=== PATIENT | female | born 1980 | race Caucasian/White ===

== ENCOUNTER 2020-09-20 21:39 | Inpatient (IN) | payer BC ==
[~2020-09-20] VITALS: Ht 177.8 cm; Wt 86.5 kg
--- NOTE | 2020-09-20 21:58 | NUR ---
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 NIH STROKE SCALE WAS PERFORMED AT [facility] WITH A SCORE OF 0. PT WITH COMPLAINTS OF DIZZINESS, NAUSEA, AND NUMBESS/TINGLING OF THE LEFT HAND, INTERMITTANTLY. NAUSEA NOW RESOLVED WITH MEDICATIONS FINE HAIRER. PT RECIEVED 8MG ZOFRAN, 50MG IM PHENERGAN, 1MG ATIVAN, AND 0.5MG DILAUDID. PT ATTACHED TO ALL MONITORS, ANSWERING QUESTIONS APPROPRAITELY WITH NO NEEDS EXPRESSED AT THIS TIME.
[2020-09-20] MEDS ORDERED: SODIUM CHLORIDE FLUSH 10ML SYR IVF ONE (22:00)
[2020-09-20] MEDS ORDERED: THYR120T PO (22:15)
[2020-09-20] MEDS ORDERED: CITA40TA5 PO (22:15)
[2020-09-20 22:20] LABS: ALBUMIN 3.7 g/dL (3.4-5.0); ANION GAP 8 mmol/L (5-15); CALCIUM 8.3 mg/dL (8.5-10.1); CHLORIDE 108 mmol/L (98-107); CREATININE 0.69 mg/dL (0.55-1.02)
[2020-09-20 22:24] LABS: BASOPHILS % (AUTO) 1 % (0-1); EOSINOPHILS % (AUTO) 1 % (1-7); LYMPHOCYTES % (AUTO) 27 % (22-44); MEAN CORPUSCULAR HEMOGLOBIN 32.4 pg (27.0-34.8); MEAN CORPUSCULAR HGB CONC 34.5 g/dL (32.4-35.8); MEAN PLATELET VOLUME 7.3 fL (7.4-10.4); MONOCYTES % (AUTO) 8 % (2-9); NEUTROPHILS % (AUTO) 63 % (42-75); PLATELET COUNT 355 x10^3/uL (130-400); RED BLOOD COUNT 4.25 x10^6/uL (3.82-5.3); RED CELL DISTRIBUTION WIDTH 13.1 % (9.6-15.2)
[2020-09-20 22:25] LABS: MD NO
[2020-09-20] MEDS ORDERED: ASPIRIN 325 MG TABLET PO ONE (22:30)
[2020-09-20 22:45] LABS: INTERNATIONAL NORMALIZED RATIO 1.04 (0.93-1.1)
[2020-09-20] MEDS ORDERED: ASPIRIN 325 MG TABLET ONE (22:55)
--- NOTE | 2020-09-20 23:00 | NUR ---
PT LYING FLAT IN THE BED. NIH SCALE NEGATIVE. PT HAS COMPLAINTS OF OCCASIONAL DIZZINESS/NAUSEA. PT HAS NO COMPLAINTS AT THIS TIME. PT GIVEN FOOD APPROVED BY [facility]. PT ABLE TO AMBULATE FROM BED TO [facility]. VIRIDIANA.
[2020-09-21] MEDS ORDERED: ONDANSETRON 2MG/ML, 2ML IVPush PRN (00:30)
[2020-09-21] MEDS ORDERED: PROMETHAZINE 25 MG/ML, 1ML IM PRN (00:30)
[2020-09-21] MEDS ORDERED: POLYETHYLENE GLYCOL 17 GM PACKET PO PRN (00:30)
[2020-09-21] MEDS ORDERED: DOCUSATE 100 MG CAPSULE PO PRN (00:30)
--- NOTE | 2020-09-21 00:30 | NUR ---
PT SLEEPING IN BED. VSS. NO COMPLAINTS. WCTM.
[2020-09-21] MEDS ORDERED: ATORVASTATIN 40 MG TABLET ONE (02:04)
--- NOTE | 2020-09-21 02:13 | NUR ---
Report given to Janet
[2020-09-21 04:51] VITALS: BP 110/73
[2020-09-21 05:02] LABS: ALBUMIN 3.5 g/dL (3.4-5.0); ANION GAP 6 mmol/L (5-15); BASOPHILS % (AUTO) 1 % (0-1); CALCIUM 8.5 mg/dL (8.5-10.1); CHLORIDE 109 mmol/L (98-107); EOSINOPHILS % (AUTO) 2 % (1-7); LYMPHOCYTES % (AUTO) 35 % (22-44); MEAN CORPUSCULAR HEMOGLOBIN 32.8 pg (27.0-34.8); MEAN CORPUSCULAR HGB CONC 35.1 g/dL (32.4-35.8); MEAN PLATELET VOLUME 7.2 fL (7.4-10.4); MONOCYTES % (AUTO) 12 % (2-9); NEUTROPHILS % (AUTO) 50 % (42-75); PLATELET COUNT 356 x10^3/uL (130-400); RED BLOOD COUNT 4.08 x10^6/uL (3.82-5.3)
[2020-09-21 05:05] LABS: ALANINE AMINOTRANSFERASE 42 U/L (12-78); ALKALINE PHOSPHATASE 46 U/L (45-117); BILIRUBIN,TOTAL 0.7 mg/dL (0.2-1.0); CHOL/HDL RATIO 4.3; CHOLESTEROL, TOTAL 170 mg/dL (140-239); HDL CHOL % 24 % (28-40); HDL CHOLESTEROL (DIRECT) 40 mg/dL (40-60); LDL CHOLESTEROL,CALCULATED 114 mg/dL (54-169); LDL/HDL RATIO 2.9 (0.5-3.0); TOTAL PROTEIN 6.6 g/dL (6.4-8.2); TRIGLYCERIDES 80 mg/dL (50-200); VLDL CHOLESTEROL 16 mg/dL (0-25)
[2020-09-21 05:07] LABS: MD NO
[2020-09-21] MEDS: THYROID 30 MG TABLET PO SCH (06:23)
--- NOTE | 2020-09-21 07:30 | NUR ---
PT IN BED NO DISTRESS, VSS, ALEXANDER CHECK DONE,
[2020-09-21] MEDS ORDERED: ACETAMINOPHEN 325 MG TABLET ONE ×2 (08:53→16:30)
[2020-09-21] MEDS ORDERED: ASPIRIN 81 MG TABLET CHEW ONE ×2 (08:53→08:57)
[2020-09-21] MEDS: ACETAMINOPHEN 650 MG/20.3 ML UDC PO PRN ×2 (08:55→17:19)
[2020-09-21] MEDS: ASPIRIN 81 MG TABLET CHEW PO/NG SCH (08:56)
[2020-09-21] MEDS: CITALOPRAM 20 MG TABLET PO SCH (08:56)
[2020-09-21] MEDS ORDERED: OMNIPAQUE 350 MG/ML, 100ML BOTTLE ONE (10:32)
--- NOTE | 2020-09-21 10:43 | NUR ---
PT UP TO [facility], NO DISTRESS, CTA DONE, NO CHANGE
--- NOTE | 2020-09-21 12:31 | NUR ---
BREAK RN- PT RESTING IN BED, CALL LIGHT IN REACH, VSS. NO NEURO CHANGES NOTED.
--- NOTE | 2020-09-21 13:32 | NUR ---
PT ASSISTED TO [facility]. STEADY ON FEET INITALLY, THEN BECOMES UNBALANCED. PT PLACED ON HOSPITAL BED. PROVIDED WITH MEAL TRAY. CONT TO AWAIT ROOM ASSIGNMENT.
--- NOTE | 2020-09-21 15:42 | NUR ---
REPORT GIVEN TO ALFONSO, VSS, NO DISTRESS, PT BEING TRANSFERED TO [facility]
[2020-09-21 16:03] VITALS: BP 117/78
[2020-09-21 20:07] VITALS: BP 116/75
[2020-09-21] MEDS ORDERED: ATORVASTATIN 40 MG TABLET PO SCH (21:00)
[2020-09-22 01:35] VITALS: BP 105/72
[2020-09-22] MEDS: ACETAMINOPHEN 650 MG/20.3 ML UDC PO PRN (01:46)
[2020-09-22] MEDS: THYROID 30 MG TABLET PO SCH (05:13)
[2020-09-22] MEDS: OXYcodone 5 MG/5 ML ORAL.SOL UDC PO PRN ×2 (05:20→20:51)
[2020-09-22 07:12] VITALS: BP 122/80
[2020-09-22] MEDS ORDERED: ACETAMINOPHEN 325 MG TABLET ONE (08:32)
[2020-09-22] MEDS: CITALOPRAM 20 MG TABLET PO SCH (08:34)
[2020-09-22] MEDS: ASPIRIN 81 MG TABLET CHEW PO/NG SCH (08:35)
[2020-09-22] MEDS: ONDANSETRON ODT 4 MG PO PRN ×2 (09:39→20:51)
[2020-09-22] MEDS: ACETAMINOPHEN 325 MG TABLET PO PRN ×2 (09:39→20:51)
[2020-09-22 12:30] VITALS: BP 111/74
[2020-09-22] MEDS ORDERED: FLU VACC QS2020-21(6MOS UP)/PF 60MCG/0.5 ML SYR IM-VACC ONE (15:30)
[2020-09-22 20:34] VITALS: BP 141/97
[2020-09-22] MEDS ORDERED: ATORVASTATIN 20 MG TABLET PO SCH (21:00)
[2020-09-23 01:10] VITALS: BP 135/88
[2020-09-23] MEDS ORDERED: OXYcodone IR 5MG TABLET ONE (01:13)
[2020-09-23] MEDS: OXYcodone 5 MG/5 ML ORAL.SOL UDC PO PRN ×3 (01:15→11:28)
[2020-09-23] MEDS: THYROID 30 MG TABLET PO SCH (05:15)
[2020-09-23] MEDS: ONDANSETRON ODT 4 MG PO PRN ×2 (06:05→11:29)
[2020-09-23] MEDS: ACETAMINOPHEN 325 MG TABLET PO PRN (06:08)
[2020-09-23 06:14] VITALS: BP 118/79
[2020-09-23] MEDS ORDERED: ONDA4TAB13 PO (07:18)
[2020-09-23] MEDS ORDERED: OXYC-307 PO (07:18)
[2020-09-23] MEDS ORDERED: ATOR20TA37 PO (07:18)
[2020-09-23] MEDS ORDERED: CYCL-259 PO (07:18)
[2020-09-23] MEDS ORDERED: ASPI-515 PO/NG (07:18)
[2020-09-23 07:20] VITALS: BP 111/70
[2020-09-23] MEDS ORDERED: CYCLOBENZAPRINE 10 MG TABLET PO PRN (07:30)
[2020-09-23] MEDS: ASPIRIN 81 MG TABLET CHEW PO/NG SCH (09:58)
[2020-09-23] MEDS: CITALOPRAM 20 MG TABLET PO SCH (09:58)
== END 2020-09-23 12:15 | disposition home or self-care (01) | DRG 64 ==
LOC: ED 22:44 → EDIP 23:24 → 5SO 09-21 15:57 → DCLOUNGE 09-23 11:52
PROVIDERS: ADMIT Internal Medicine; ATTEND Internal Medicine Infectious Disease
DX: I63.9 Cerebral infarction, unspecified (principal); I77.74 Dissection of vertebral artery; E03.9 Hypothyroidism, unspecified; F32.9 Major depressive disorder, single episode, unspecified; G43.909 Migraine, unspecified, not intractable, without status migrainosus; Z79.82 Long term (current) use of aspirin; Z82.3 Family history of stroke; Z90.710 Acquired absence of both cervix and uterus; Z98.51 Tubal ligation status; Z23 Encounter for immunization
CPT/HCPCS: 36415; 70450; 70496; 70498; 80048; 80053; 80061; 82040; 83036; 85025; 85610; 85730; 90686; 93005; 93306; G0378; J2405; Q0162; Q9967; 92523-GN